=== PATIENT | male | born 1950 | race Caucasian/White ===

== ENCOUNTER 2021-09-02 11:18 | Day surgery (SDC) | payer OTHER, MEDICARE ==
[2021-08-28 09:53] LABS: CLARITY,URINE CLEAR (Clear); COLOR,URINE YELLOW (Yellow); GLUCOSE, URINE NEGATIVE (Neg); KETONES,URINE NEGATIVE (Neg); LEUKOCYTE ESTERASE ,URINE NEGATIVE (Neg); NITRITES, URINE NEGATIVE (Neg); OCCULT BLOOD,URINE NEGATIVE (Neg); PH,URINE 5.5 (4.8-8.0); PROTEIN,URINE NEGATIVE (Neg); UROBILINOGEN,URINE 0.2 E.U/dL (0.2-1.0)
[2021-08-28 10:05] LABS: BASOPHILS % (AUTO) 0.5 % (0-1); EOSINOPHILS # (AUTO) 0.1 X10'3 (0-0.9); EOSINOPHILS % (AUTO) 1.8 % (0-6); HEMATOCRIT 43.8 % (42.0-52.0); HEMOGLOBIN 15.4 g/dl (14.0-17.9); LYMPHOCYTES # (AUTO) 1.6 X10'3 (1.1-4.8); MEAN CORPUSCULAR HEMOGLOBIN 34.4 PG (27.0-31.0); MEAN CORPUSCULAR VOLUME 98.1 FL (78-98); MEAN PLATELET VOLUME 7.3 FL (7.4-10.4); MONOCYTES # (AUTO) 0.5 X10'3 (0-0.9); MONOCYTES % (AUTO) 10.2 % (2-12); NEUTROPHILS # (AUTO) 2.8 X10'3 (1.8-7.7); NEUTROPHILS % (AUTO) 56.5 % (42-75); PLATELET COUNT 93 X10'3 (140-440); RED BLOOD COUNT 4.47 X10'6 (4.70-6.10)
[2021-08-28 10:07] LABS: PARTIAL THROMBOPLASTIN TIME 26 SECONDS (22-32)
[2021-08-28 10:13] LABS: UA COLLECTION TYPE CLN CATCH MIDSTREAM
[2021-08-28 10:40] LABS: ANISOCYTOSIS FEW; PLATELET ESTIMATE DECREASED; SPHEROCYTES FEW
[2021-08-28 11:05] LABS: ALBUMIN 4.3 G/DL (3.4-5.0); ANION GAP 9 (8-16); BLOOD UREA NITROGEN 15 MG/DL (7-18); BUN/CREATININE RATIO 15.5 (5.4-32.0); CALCIUM 8.9 MG/DL (8.5-10.1); CHLORIDE 105 MMOL/L (99-107); CREATININE 0.97 MG/DL (0.60-1.10); GLUCOSE 150 MG/DL (70-104); POTASSIUM 3.9 MMOL/L (3.5-5.1); SODIUM 143 MMOL/L (135-145); TOTAL CARBON DIOXIDE 29.5 MMOL/L (24-32); eGFR 77 ML/MIN
[2021-09-02] VITALS (8 sets, daily range): BP systolic 114–165; BP diastolic 59–78
[~2021-09-02] VITALS: Ht 170.2 cm; Wt 93.9 kg
[~2021-09-02 11:18] MED LIST: ASPI-1265 PO; CHOL50004 PO; FLO0.4C PO; OMEG1CAP13 PO; PANT-47 PO; PRAV40TA3 PO; [UNRECOGNIZED DRUG - CODE] PO
[2021-09-02] MEDS ORDERED: LOTE5DRO9 RIGHTEYE (11:45)
[2021-09-02] MEDS ORDERED: normal saline 1000ml 1,000 ML IV SCH (11:45)
[2021-09-02] MEDS ORDERED: APIX5TAB3 PO (11:45)
[2021-09-02] MEDS ORDERED: BESI5DRO RIGHTEYE (11:45)
[2021-09-02] MEDS ORDERED: LANTUS SQ (11:45)
[2021-09-02] MEDS ORDERED: POLOS RIGHTEYE (11:45)
[2021-09-02] MEDS ORDERED: BROM3DRO RIGHTEYE (11:45)
[2021-09-02] MEDS ORDERED: ATOR40TA72 PO (11:45)
[2021-09-02] MEDS ORDERED: ASCO500C17 PO (11:47)
[2021-09-02] MEDS ORDERED: GLUC100017 PO (11:47)
[2021-09-02] MEDS ORDERED: midazolam 1 mg/ML 2ml injection ONE ×3 (13:26→14:22)
[2021-09-02] MEDS ORDERED: fentaNYL/PF 50MCG/1 ML 2ML syringe ONE ×2 (13:26→14:22)
[2021-09-02] MEDS ORDERED: LIDOcaine 1% w/EPI 1:100,000 30ml vial (MDV) ONE (13:28)
[2021-09-02] MEDS ORDERED: ceFAZolin 1000mg inj ONE (13:38)
[2021-09-02] MEDS ORDERED: ceFAZolin 2gm in dextrose, iso 50 ML IV ONE ×2 (13:46→13:50)
[2021-09-02] MEDS ORDERED: proCHLORperazine 10 MG/2 ml inj ONE (13:55)
[2021-09-02] MEDS ORDERED: LIDOCAINE 1%/EPI 1:100,000 inj. 10 ML multi-dose vial ONE (14:04)
[2021-09-02] MEDS ORDERED: HYDROcodone/acetaminophen 5mg/325mg tablet PO PRN (15:20)
[2021-09-02] MEDS ORDERED: HYDROcodone/acetaminophen 10/325mg tab PO PRN (15:20)
== END 2021-09-02 17:25 | disposition home or self-care (01) ==
LOC: SSTAY O 11:18
PROVIDERS: ATTEND Internal Medicine Interventional Cardiology
DX: I49.5 Sick sinus syndrome (principal); I44.30 Unspecified atrioventricular block; E11.9 Type 2 diabetes mellitus without complications; G47.33 Obstructive sleep apnea (adult) (pediatric); I10 Essential (primary) hypertension; I25.10 Atherosclerotic heart disease of native coronary artery without angina pectoris; I48.92 Unspecified atrial flutter; I65.23 Occlusion and stenosis of bilateral carotid arteries; E78.5 Hyperlipidemia, unspecified; I27.20 Pulmonary hypertension, unspecified; Z79.4 Long term (current) use of insulin; Z95.5 Presence of coronary angioplasty implant and graft; Z85.6 Personal history of leukemia; Z88.5 Allergy status to narcotic agent; Z79.01 Long term (current) use of anticoagulants; Z79.899 Other long term (current) drug therapy
CPT/HCPCS: 33208; 36415; 80048; 81003; 82948; 85025; 85610; 85730; 93005; 99152; 99153; C1785; C1898; J0690; J0780; J2250; J3010; J3490; 85008; A4620; A6258